=== PATIENT | male | born 1990 | race Caucasian/White ===

== ENCOUNTER 2021-10-01 10:47 | Emergency (ER) | payer OTHER ==
[2021-10-01 11:01] VITALS: BP 137/77; PULSE 83; RESP 18; TEMP 97.9; BMI 23.5
[2021-10-01] MEDS ORDERED: methylPREDNISolone NA SUCC 125 MG/2 ML VIAL IVPUSH ONE (11:17)
[2021-10-01] MEDS ORDERED: FAMOTIDINE 20 MG/50 ML IVPB 20 MG/50 ML MG IVPB ONE ×2 (11:17→11:47)
[2021-10-01] MEDS ORDERED: methylPREDNISolone NA SUCC 125 MG/2 ML VIAL ONE (11:47)
== END 2021-10-01 13:26 | disposition home or self-care (01) ==
LOC: JER 10:47
PROC: 3E033GC Introduction of Other Therapeutic Substance into Peripheral Vein, Percutaneous Approach (ICD-10-PCS; principal; 2021-10-01)
DX: T78.40XA Allergy, unspecified, initial encounter (principal)
CPT/HCPCS: 99284-25

== ENCOUNTER 2021-10-19 01:09 | Emergency (ER) | payer OTHER ==
[2021-10-19 01:17] VITALS: BP 146/85; PULSE 75; RESP 18; TEMP 98.6; BMI 23.6
== END 2021-10-19 03:16 | disposition home or self-care (01) ==
LOC: FER 01:09
DX: N43.3 Hydrocele, unspecified (principal); N50.812 Left testicular pain
CPT/HCPCS: 76870-TC; 99284-25